=== PATIENT | female | born 1965 | race Caucasian/White ===

== ENCOUNTER 2018-09-12 17:01 | Inpatient (IN) | payer BC ==
[~2018-09-12] VITALS: Ht 154.9 cm; Wt 111.4 kg
--- NOTE | ~2018-09-12 | MORECARE ---
CASE MANAGEMENT DISCHARGE SUMMARY PATIENT: RICHARD COBOS UNIT: [id number] ADM DATE: 09/12/18 AGE: 53 : 69 SEX: F ROOM/BED: D.1208 AUTHOR: PASHA,DOC PHYSICIAN: REFERRING PHYSICIAN: CORRY GR MD DATE OF SERVICE: 09/16/18 Discharge Plan Patient Name: RICHARD COBOS Facility: [facility]:[place] : 1965 Planned Disposition: Home Anticipated Discharge Date: Discharge Date: Expected LOS: Initial Reviewer: [email or web address] Initial Review Date: 09/16/2018 Generated: 09/16/18 3:19 pm Comments DCP- Discharge Planning Updated by [email or web address]: Shruthi Horner on 09/16/18 1:[address] Patient Name: RICHARD COBOS Admission Status: ER Accout number: [id number] Admission Date: 09-12-2018 : 1965 Admission Diagnosis:DVTRCLI OF INTEST, PART UNSP, 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 Patient states she plans on returning home with her . She currently denies any discharge planning needs. CM will continue to follow and assist as needed with discharge planning / needs. Child Protective Investigator: Shruthi Horner DCPIA - Discharge Planning Initial Assessment Updated by [email or web address]: Shruthi Horner on 09/16/18 2:15 pm * Is the patient Alert and Oriented? Yes * How many steps to enter\exit or inside your home? * PCP [facility] * [facility] [place] * Preadmission Environment Home with Family * ADLs Independent * Equipment None * List name and contact numbers for known caregivers / representatives who currently or will assist patient after discharge: FILOMENA COBOS [phone] * Verbal permission to speak to the caregivers and representatives has been obtained from the patient. N/A * Community resources currently utilized None * Additional services required to return to the preadmission environment? No * Can the patient safely return to the preadmission environment? Yes * Has this patient been hospitalized within the prior 30 days at any hospital? No Patient Name: RICHARD COBOS Page [id number] at 1419 All edits/amendments must be made on the electronic document DICTATION DATE: 09/16/181417 FIRER TUNNEL KILN: [place] 09/16/181417 RPT#: [id number] DC DATE: STATUS: ADM IN [facility] [address] [place] [address] END OF REPORT
--- NOTE | ~2018-09-12 | MORECARE ---
CASE MANAGEMENT DISCHARGE SUMMARY PATIENT: RICHARD COBOS UNIT: [id number] ADM DATE: 09/12/18 AGE: 53 : 69 SEX: F ROOM/BED: D.1208 AUTHOR: PASHA,DOC PHYSICIAN: REFERRING PHYSICIAN: CORRY GR MD DATE OF SERVICE: 09/19/18 Discharge Plan Patient Name: RICHARD COBOS Facility: [facility]:[place] : 1965 Planned Disposition: Home Anticipated Discharge Date: Discharge Date: 09/19/2018 Expected LOS: Initial Reviewer: [email or web address] Initial Review Date: 09/16/2018 Generated: 09/19/18 8:38 pm Comments DCP- Discharge Planning Updated by [email or web address]: Shruthi Horner on 09/16/18 1:[address] Patient Name: RICHARD COBOS Admission Status: ER Accout number: [id number] Admission Date: 09-12-2018 : 1965 Admission Diagnosis:DVTRCLI OF INTEST, PART UNSP, 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 Patient states she plans on returning home with her . She currently denies any discharge planning needs. CM will continue to follow and assist as needed with discharge planning / needs. Bracelet Form Coverer: Shruthi Horner DCPIA - Discharge Planning Initial Assessment Updated by [email or web address]: Shruthi Horner on 09/16/18 2:15 pm * Is the patient Alert and Oriented? Yes * How many steps to enter\exit or inside your home? * PCP [facility] * [facility] [place] * Preadmission Environment Home with Family * ADLs Independent * Equipment None * List name and contact numbers for known caregivers / representatives who currently or will assist patient after discharge: FILOMENA COBOS [phone] * Verbal permission to speak to the caregivers and representatives has been obtained from the patient. N/A * Community resources currently utilized None * Additional services required to return to the preadmission environment? No * Can the patient safely return to the preadmission environment? Yes * Has this patient been hospitalized within the prior 30 days at any hospital? No Last DP export: 09/16/18 1:19 Patient Name: RICHARD COBOS Page [id number] at 1938 All edits/amendments must be made on the electronic document DICTATION DATE: 09/19/181937 PAPER REWINDER OPERATOR: [place] 09/19/181937 RPT#: [id number] DC DATE:09/19/18 STATUS: DIS IN [facility] [address] [place] [address] END OF REPORT
[2018-09-12] MEDS ORDERED: ZEGERID OTC 201 EACH PO (17:28)
[2018-09-12] MEDS ORDERED: PHENERGAN25 M1 PO (17:28)
[2018-09-12] MEDS ORDERED: NORCO 10-325 TA1 TAB PO (17:28)
[2018-09-12] MEDS ORDERED: CARAFATE1 G PO (17:28)
[2018-09-12] MEDS ORDERED: ULTRAM50 MG PO (17:28)
[2018-09-12] MEDS ORDERED: NORFLEX100 MG PO (17:29)
[2018-09-12] MEDS ORDERED: RESTORIL15 MG PO (17:29)
[2018-09-12] MEDS ORDERED: EFFEXOR50 MG PO ×2 (17:29)
[2018-09-12] MEDS ORDERED: PROPRANOLOL HCL60 M1 PO (17:29)
[2018-09-12] MEDS ORDERED: MECLIZINE HCL25 MG PO (17:30)
[2018-09-12 18:43] LABS: BASOPHILS 0.4 % (0-2); EOSINOPHILS 1.9 % (0-7); HEMATOCRIT 43.8 % (36.0-48.0); HEMOGLOBIN 14.9 g/dL (12-16); IMMATURE GRANULOCYTES 0.1 % (0-5); LYMPHOCYTES 26.5 % (15-50); MCH 28.9 pg (26.0-34.0); MEAN PLATELET VOLUME 10.2 fL (7.4-10.4); MONOCYTES 5.9 % (2-11); NEUTROPHILS 65.2 % (40-80); PLATELET COUNT 334 10x3/uL (130-400); RBC 5.15 10x6/uL (4.00-5.40); RDW 14.4 % (11.5-14.5); WBC 10.1 10x3/uL (4.8-10.8)
[2018-09-12 18:48] LABS: INR 1.09 (0.85-1.17); PROTIME 13.7 SECONDS (11.6-15.0)
[2018-09-12 18:54] LABS: APPEARANCE CLEAR (CLEAR); COLOR YELLOW (YELLOW); GLUCOSE NEGATIVE (NEGATIVE); NITRITE NEGATIVE (NEGATIVE); PROTEIN NEGATIVE (NEGATIVE); SPECIFIC GRAVITY 1.015 (1.005-1.020)
[2018-09-12 18:55] LABS: BACTERIA NONE SEEN /hpf (NONE SEEN); BILIRUBIN NEGATIVE (NEGATIVE); EPITHELIAL CELLS NSEEN /hpf (0-5); KETONE SMALL mg/dL (NEGATIVE); RED CELLS - URINE NONE SEEN /hpf (0-5); UROBILINOGEN NORMAL (NORMAL); WHITE CELLS - URINE NSEEN /hpf (0-5)
[2018-09-12 19:01] LABS: ALBUMIN 4.1 g/dL (3.4-5.0); ALKALINE PHOSPHATASE 119 U/L (46-116); ALT (SGPT) 76 U/L (10-68); BILIRUBIN - TOTAL 0.24 mg/dL (0.2-1.3); CALC OSMOLALITY 280 mosm/kg (275-300); CALCIUM 9.6 mg/dL (8.5-10.1); CARBON DIOXIDE 23.5 mmol/L (21.0-32.0); CHLORIDE - SERUM 106 mmol/L (98-107); CREATININE - SERUM 0.7 mg/dL (0.6-1.3); GLUCOSE 104 mg/dL (74-106); POTASSIUM - SERUM 3.7 mmol/L (3.5-5.1); PROTEIN - SERUM 8.3 g/dL (6.4-8.2); SODIUM 142 mmol/L (136-145); UREA NITROGEN 6 mg/dL (7-18); eGFR NON AFRICAN AMERICAN > 90 mL/min (90-120)
[2018-09-12 19:04] LABS: AMYLASE - SERUM 30 U/L (25-115); LIPASE 111 U/L (73-393)
[2018-09-12 19:06] LABS: TROPONIN-I < 0.017 ng/mL (0.000-0.060)
[2018-09-12 22:10] VITALS: BP 125/67
[2018-09-12] MEDS ORDERED: SEROQUEL50 MG PO (22:22)
[2018-09-13 00:38] VITALS: BP 125/67; BMI 41.6
[2018-09-13 04:59] VITALS: BP 101/45
[2018-09-13 05:07] LABS: BASOPHILS 0.5 % (0-2); EOSINOPHILS 3.5 % (0-7); HEMATOCRIT 38.9 % (36.0-48.0); HEMOGLOBIN 12.8 g/dL (12-16); IMMATURE GRANULOCYTES 0.1 % (0-5); MCH 28.6 pg (26.0-34.0); MCHC 32.9 g/dL (31.0-37.0); MEAN PLATELET VOLUME 10.4 fL (7.4-10.4); MONOCYTES 9.7 % (2-11); NEUTROPHILS 52.2 % (40-80); PLATELET COUNT 296 10x3/uL (130-400); RBC 4.47 10x6/uL (4.00-5.40); RDW 14.9 % (11.5-14.5)
[2018-09-13 05:15] LABS: WBC 7.5 10x3/uL (4.8-10.8)
[2018-09-13 06:00] LABS: ALBUMIN 3.4 g/dL (3.4-5.0); ALKALINE PHOSPHATASE 96 U/L (46-116); ALT (SGPT) 65 U/L (10-68); BILIRUBIN - TOTAL 0.34 mg/dL (0.2-1.3); CALC OSMOLALITY 284 mosm/kg (275-300); CALCIUM 8.4 mg/dL (8.5-10.1); CARBON DIOXIDE 25.1 mmol/L (21.0-32.0); CHLORIDE - SERUM 108 mmol/L (98-107); CREATININE - SERUM 0.6 mg/dL (0.6-1.3); GLUCOSE 94 mg/dL (74-106); POTASSIUM - SERUM 3.9 mmol/L (3.5-5.1); PROTEIN - SERUM 6.6 g/dL (6.4-8.2); SODIUM 144 mmol/L (136-145); UREA NITROGEN 7 mg/dL (7-18); eGFR NON AFRICAN AMERICAN > 90 mL/min (90-120)
[2018-09-13 07:19] VITALS: BP 113/47
[2018-09-13 10:47] VITALS: Ht 154.9 cm; Wt 111.4 kg
[2018-09-13 11:12] VITALS: BP 107/58
[2018-09-13 16:48] VITALS: BP 121/82
[2018-09-13 20:01] VITALS: BP 137/50
[2018-09-14 00:26] VITALS: BP 98/48
[2018-09-14 04:37] VITALS: BP 109/62
[2018-09-14 06:20] LABS: BASOPHILS 0.6 % (0-2); EOSINOPHILS 4.2 % (0-7); HEMATOCRIT 37.4 % (36.0-48.0); IMMATURE GRANULOCYTES 0.2 % (0-5); LYMPHOCYTES 36.2 % (15-50); MCH 28.2 pg (26.0-34.0); MCHC 32.1 g/dL (31.0-37.0); MEAN PLATELET VOLUME 10.4 fL (7.4-10.4); MONOCYTES 8.7 % (2-11); NEUTROPHILS 50.1 % (40-80); PLATELET COUNT 287 10x3/uL (130-400); RBC 4.25 10x6/uL (4.00-5.40); RDW 14.9 % (11.5-14.5); WBC 8.1 10x3/uL (4.8-10.8)
[2018-09-14 06:52] LABS: ALBUMIN 3.1 g/dL (3.4-5.0); ALKALINE PHOSPHATASE 84 U/L (46-116); ALT (SGPT) 76 U/L (10-68); BILIRUBIN - DIRECT 0.09 mg/dL (0.00-0.30); BILIRUBIN - INDIRECT 0.14 mg/dL (0.00-1.00); BILIRUBIN - TOTAL 0.23 mg/dL (0.2-1.3); CALC OSMOLALITY 282 mosm/kg (275-300); CALCIUM 8.3 mg/dL (8.5-10.1); CARBON DIOXIDE 22.8 mmol/L (21.0-32.0); CHLORIDE - SERUM 110 mmol/L (98-107); CREATININE - SERUM 0.7 mg/dL (0.6-1.3); GLUCOSE 94 mg/dL (74-106); POTASSIUM - SERUM 4.2 mmol/L (3.5-5.1); PROTEIN - SERUM 6.4 g/dL (6.4-8.2); SODIUM 143 mmol/L (136-145); TRIGLYCERIDE 128 mg/dL (30-200); UREA NITROGEN 7 mg/dL (7-18); eGFR NON AFRICAN AMERICAN > 90 mL/min (90-120)
[2018-09-14 07:06] LABS: CHOLESTEROL, TOTAL 157 mg/dL (0-200); HDL CHOLESTEROL 26 mg/dL (32-96); LDL CHOLESTEROL 106 mg/dL (0-100); LDL-HDL RATIO 4.1 ratio (1.5-3.5)
[2018-09-14 07:19] VITALS: BP 105/51
[2018-09-14 11:19] VITALS: BP 108/48
[2018-09-14 15:30] VITALS: BP 120/51
[2018-09-14 19:25] VITALS: BP 112/76
[2018-09-15 00:07] VITALS: BP 82/37
[2018-09-15 04:24] VITALS: BP 135/52
[2018-09-15 06:37] LABS: BASOPHILS 0.5 % (0-2); EOSINOPHILS 4.6 % (0-7); HEMATOCRIT 35.3 % (36.0-48.0); HEMOGLOBIN 11.4 g/dL (12-16); IMMATURE GRANULOCYTES 0.2 % (0-5); LYMPHOCYTES 43.3 % (15-50); MCH 28.4 pg (26.0-34.0); MCHC 32.3 g/dL (31.0-37.0); MCV 87.8 fL (80.0-100.0); MEAN PLATELET VOLUME 10.6 fL (7.4-10.4); MONOCYTES 9.7 % (2-11); NEUTROPHILS 41.7 % (40-80); RBC 4.02 10x6/uL (4.00-5.40); RDW 14.8 % (11.5-14.5); WBC 6.1 10x3/uL (4.8-10.8)
[2018-09-15 06:52] LABS: PLATELET COUNT 220 10x3/uL (130-400)
[2018-09-15 06:53] LABS: CALCIUM 8.1 mg/dL (8.5-10.1); CARBON DIOXIDE 21.8 mmol/L (21.0-32.0); CHLORIDE - SERUM 111 mmol/L (98-107); CREATININE - SERUM 0.8 mg/dL (0.6-1.3); GLUCOSE 112 mg/dL (74-106); SODIUM 142 mmol/L (136-145); eGFR NON AFRICAN AMERICAN 80 mL/min (90-120)
[2018-09-15 07:04] LABS: CALC OSMOLALITY 280 mosm/kg (275-300); POTASSIUM - SERUM 3.5 mmol/L (3.5-5.1); UREA NITROGEN 4 mg/dL (7-18)
[2018-09-15 07:13] VITALS: BP 127/61
[2018-09-15 11:44] VITALS: BP 141/44
[2018-09-15 16:36] VITALS: BP 133/52
[2018-09-15 19:30] VITALS: BP 123/53
[2018-09-16] VITALS: BP 114/44
[2018-09-16 04:00] VITALS: BP 140/45
[2018-09-16 06:17] LABS: BASOPHILS 0.4 % (0-2); EOSINOPHILS 4.5 % (0-7); HEMATOCRIT 34.8 % (36.0-48.0); HEMOGLOBIN 11.4 g/dL (12-16); IMMATURE GRANULOCYTES 0.1 % (0-5); MCH 28.4 pg (26.0-34.0); MCHC 32.8 g/dL (31.0-37.0); MCV 86.6 fL (80.0-100.0); MEAN PLATELET VOLUME 10.7 fL (7.4-10.4); MONOCYTES 9.6 % (2-11); NEUTROPHILS 54.4 % (40-80); PLATELET COUNT 263 10x3/uL (130-400); RBC 4.02 10x6/uL (4.00-5.40); RDW 14.7 % (11.5-14.5)
[2018-09-16 06:20] LABS: WBC 8.4 10x3/uL (4.8-10.8)
[2018-09-16 06:39] LABS: CALC OSMOLALITY 283 mosm/kg (275-300); CALCIUM 7.7 mg/dL (8.5-10.1); CARBON DIOXIDE 23.2 mmol/L (21.0-32.0); CHLORIDE - SERUM 111 mmol/L (98-107); CREATININE - SERUM 0.8 mg/dL (0.6-1.3); GLUCOSE 102 mg/dL (74-106); POTASSIUM - SERUM 3.4 mmol/L (3.5-5.1); SODIUM 144 mmol/L (136-145); UREA NITROGEN 3 mg/dL (7-18); eGFR NON AFRICAN AMERICAN 80 mL/min (90-120)
[2018-09-16 07:33] VITALS: BP 136/67
[2018-09-16 11:18] VITALS: BP 138/85
[2018-09-16 18:25] VITALS: BP 136/64
[2018-09-16 19:53] VITALS: BP 138/66
[2018-09-17] VITALS (7 sets, daily range): BP systolic 118–146; BP diastolic 54–73
[2018-09-17 06:05] LABS: BASOPHILS 0.4 % (0-2); CALC OSMOLALITY 279 mosm/kg (275-300); CALCIUM 8.1 mg/dL (8.5-10.1); CARBON DIOXIDE 25.2 mmol/L (21.0-32.0); CHLORIDE - SERUM 108 mmol/L (98-107); CREATININE - SERUM 0.8 mg/dL (0.6-1.3); EOSINOPHILS 4.6 % (0-7); GLUCOSE 107 mg/dL (74-106); HEMATOCRIT 36.6 % (36.0-48.0); IMMATURE GRANULOCYTES 0.4 % (0-5); LYMPHOCYTES 26.1 % (15-50); MCH 28.2 pg (26.0-34.0); MCHC 32.8 g/dL (31.0-37.0); MCV 85.9 fL (80.0-100.0); MEAN PLATELET VOLUME 10.5 fL (7.4-10.4); MONOCYTES 9.4 % (2-11); NEUTROPHILS 59.1 % (40-80); PLATELET COUNT 303 10x3/uL (130-400); POTASSIUM - SERUM 3.5 mmol/L (3.5-5.1); RBC 4.26 10x6/uL (4.00-5.40); RDW 14.9 % (11.5-14.5); SODIUM 142 mmol/L (136-145); UREA NITROGEN 3 mg/dL (7-18); WBC 9.2 10x3/uL (4.8-10.8); eGFR NON AFRICAN AMERICAN 80 mL/min (90-120)
[2018-09-18] VITALS (7 sets, daily range): BP systolic 125–145; BP diastolic 59–72
[2018-09-18 06:53] LABS: CALC OSMOLALITY 279 mosm/kg (275-300); CARBON DIOXIDE 28.9 mmol/L (21.0-32.0); CHLORIDE - SERUM 107 mmol/L (98-107); CREATININE - SERUM 0.7 mg/dL (0.6-1.3); GLUCOSE 93 mg/dL (74-106); POTASSIUM - SERUM 3.8 mmol/L (3.5-5.1); SODIUM 142 mmol/L (136-145); eGFR NON AFRICAN AMERICAN > 90 mL/min (90-120)
[2018-09-18 06:55] LABS: UREA NITROGEN 4 mg/dL (7-18)
[2018-09-18 07:01] LABS: BASOPHILS 0.5 % (0-2); EOSINOPHILS 5.1 % (0-7); HEMATOCRIT 34.4 % (36.0-48.0); HEMOGLOBIN 11.4 g/dL (12-16); IMMATURE GRANULOCYTES 0.3 % (0-5); LYMPHOCYTES 27.5 % (15-50); MCH 28.7 pg (26.0-34.0); MCHC 33.1 g/dL (31.0-37.0); MCV 86.6 fL (80.0-100.0); MEAN PLATELET VOLUME 10.5 fL (7.4-10.4); MONOCYTES 11.5 % (2-11); NEUTROPHILS 55.1 % (40-80); PLATELET COUNT 246 10x3/uL (130-400); RBC 3.97 10x6/uL (4.00-5.40)
[2018-09-18 07:14] LABS: WBC 6.3 10x3/uL (4.8-10.8)
[2018-09-19 04:51] VITALS: BP 130/57
[2018-09-19 06:27] LABS: BASOPHILS 0.4 % (0-2); EOSINOPHILS 4.2 % (0-7); HEMOGLOBIN 11.9 g/dL (12-16); IMMATURE GRANULOCYTES 0.2 % (0-5); LYMPHOCYTES 21.7 % (15-50); MCH 28.4 pg (26.0-34.0); MCHC 33.1 g/dL (31.0-37.0); MCV 85.9 fL (80.0-100.0); MEAN PLATELET VOLUME 10.4 fL (7.4-10.4); MONOCYTES 11.9 % (2-11); NEUTROPHILS 61.6 % (40-80); PLATELET COUNT 273 10x3/uL (130-400); RBC 4.19 10x6/uL (4.00-5.40)
[2018-09-19 06:36] LABS: WBC 8.2 10x3/uL (4.8-10.8)
[2018-09-19 06:50] LABS: ALBUMIN 2.7 g/dL (3.4-5.0); ALKALINE PHOSPHATASE 84 U/L (46-116); ALT (SGPT) 38 U/L (10-68); BILIRUBIN - TOTAL 0.15 mg/dL (0.2-1.3); CALC OSMOLALITY 282 mosm/kg (275-300); CALCIUM 8.6 mg/dL (8.5-10.1); CARBON DIOXIDE 31.3 mmol/L (21.0-32.0); CHLORIDE - SERUM 104 mmol/L (98-107); CREATININE - SERUM 0.6 mg/dL (0.6-1.3); GLUCOSE 114 mg/dL (74-106); POTASSIUM - SERUM 3.9 mmol/L (3.5-5.1); PROTEIN - SERUM 6.3 g/dL (6.4-8.2); SODIUM 142 mmol/L (136-145); eGFR NON AFRICAN AMERICAN > 90 mL/min (90-120)
[2018-09-19 06:54] LABS: UREA NITROGEN 9 mg/dL (7-18)
[2018-09-19 07:49] VITALS: BP 124/60
[2018-09-19 12:43] VITALS: BP 152/66
[2018-09-19] MEDS ORDERED: FLAGYL500 MG PO (12:44)
[2018-09-19] MEDS ORDERED: LEVAQUIN750 MG PO (12:44)
== END 2018-09-19 16:12 | disposition home or self-care (01) | DRG 392 ==
LOC: D.ER 17:01 → D.M3 21:07
PROVIDERS: Emergency Medicine; Family Medicine; Internal Medicine Nephrology
DX: K57.92 Diverticulitis of intestine, part unspecified, without perforation or abscess without bleeding (principal); F17.213 Nicotine dependence, cigarettes, with withdrawal; E78.5 Hyperlipidemia, unspecified; J44.9 Chronic obstructive pulmonary disease, unspecified; K21.9 Gastro-esophageal reflux disease without esophagitis; G47.00 Insomnia, unspecified; F41.9 Anxiety disorder, unspecified; R91.8 Other nonspecific abnormal finding of lung field; K76.0 Fatty (change of) liver, not elsewhere classified